=== PATIENT | male | born 1980 | race Two or more races ===

== ENCOUNTER 2019-03-09 23:30 | Emergency (ER) | payer MEDICAID ==
[~2019-03-09] VITALS: Ht 170.2 cm; Wt 77.1 kg
[2019-03-09 23:58] VITALS: BP 115/78
[2019-03-10] MEDS ORDERED: BACTRIM DS TAB1 EAC1 ORAL (00:06)
--- NOTE | 2019-03-10 00:07 | Emergency Room Report ---
History of Present Illness General Chief Complaint: Wound Recheck/Suture Removal Source: Patient Present Illness HPI Is a 38-year-old male who presents with chief complaint of wound check. He has an abscess to his right shoulder area for about 5 days now. He was seen initially [facility] and placed on antibiotics. 2 days later he went to [place] and had I&D done. He came here now 3 days later for recheck. Continued to have drainage. No fever chills. Tender to that area. Said that he finished his antibiotics already. Denies any other complaint. Pain is 7 out of 10. Worse with palpation. Allergies: Uncoded Allergies: PEANUTS (Allergy, Unknown, 03/09/19) Patient History Past Medical History: see triage record, old chart reviewed Past Surgical History: none Pertinent Family History: none Social History: Reports: smoking Immunizations: other Reviewed Nursing Documentation: PMH: Agreed; PSxH: Agreed Nursing Documentation-PM Past Medical History: No Stated History Review of Systems Eye: Denies: eye pain, blurred vision ENT: Denies: ear pain, nose congestion, throat swelling Respiratory: Denies: cough, shortness of breath Cardiovascular: Denies: chest pain, palpitations Gastrointestinal: Denies: abdominal pain, diarrhea, nausea, vomiting Musculoskeletal: Denies: back pain, joint pain Skin: Denies: rash Neurological: Denies: headache, numbness Endocrine: Denies: increased thirst, increased urine Hematologic/Lymphatic: Denies: easy bruising All Other Systems: negative except mentioned in HPI Physical Exam Vital Signs Date Time Temp Pulse Resp B/P (MAP) Pulse Ox O2 Delivery O2 Flow Rate FiO2 03/09/19 23:45 97.9 87 18 115/78 (90) 99 Room Air Vitals normal Sp02 EP Interpretation: reviewed, normal General Appearance: well appearing, no apparent distress, alert Head: normocephalic, atraumatic Eyes: bilateral eye PERRL, bilateral eye EOMI ENT: hearing grossly normal, normal pharynx Neck: full range of motion, supple, no meningismus Respiratory: chest non-tender, lungs clear, normal breath sounds Cardiovascular #1: regular rate, rhythm, no murmur Gastrointestinal: normal bowel sounds, non tender, no mass, no organomegaly, no bruit, non-distended Musculoskeletal: back normal, gait/station normal, normal range of motion Psychiatric: mood/affect normal Skin: warm/dry, other - Right scapula area: The wound has induration with surrounding erythema. Granulation tissue. No drainage. Medical Decision Making Diagnostic Impression: Primary Impression: Encounter for wound re-check ER Course This patient presents here for wound check. This is a status post I&D of an abscess. I will continue with antibiotics since there is still some surrounding erythema and induration. I removed the packing in place a wet-to- dry dressing. No need for further I&D. Last Vital Signs Date Time Temp Pulse Resp B/P (MAP) Pulse Ox O2 Delivery O2 Flow Rate FiO2 03/09/19 23:58 97.9 18 115/78 99 Room Air 03/09/19 23:45 87 Status: improved Disposition: HOME, SELF-CARE Condition: Stable Scripts Trimethoprim/Sulfamethoxazole 160/800* (BACTRIM DS TABLET*) 1 Each Tablet 1 TAB ORAL Q12H, #14 TAB 0 Refills Prov: Slim Bang MD 03/10/19 Referrals: [facility],REFERRING (PCP) Patient Instructions: Wound Check Additional Instructions: Keep wound clean. Clean area with hydrogen peroxide and then apply antibiotic ointment. Keep it covered. Follow-up with your doctor in 3 to 5 days for recheck. Return if worse. Slim Bang MD Mar 10, 2019 00:07
[2019-03-10 00:23] VITALS: BP 115/78
== END 2019-03-10 00:24 | disposition home or self-care (01) ==
LOC: EMR 23:32
DX: L02.413 Cutaneous abscess of right upper limb (principal); F17.200 Nicotine dependence, unspecified, uncomplicated; Z91.010 Allergy to peanuts; Z48.01 Encounter for change or removal of surgical wound dressing
CPT/HCPCS: 99281

== ENCOUNTER 2019-06-12 16:51 | Emergency (ER) | payer BC, MEDICAID ==
[~2019-06-12] VITALS: Ht 172.7 cm; Wt 77.1 kg
[~2019-06-12 16:51] MED LIST: BACTRIM DS TAB1 EAC1 ORAL
[2019-06-12 17:20] VITALS: BP 119/70
--- NOTE | 2019-06-12 17:20 | NUR ---
ED Nurse Note: ambulated into ED due to left hand skin abscess x 2days, swelling noted. NAD noted.
--- NOTE | 2019-06-12 17:31 | Emergency Room Report ---
History of Present Illness General Chief Complaint: Skin Rash/Abscess Source: Patient Present Illness HPI 38-year-old male with history of methamphetamine abuse here complaining of an abscess versus cyst in the left dorsum of the hand x3 days. Patient reports that due to methamphetamine use he keeps picking on his skin and getting multiple infections. There is a rounded cystic lesion in the left hand on the dorsum at the base of the metacarpal bones slightly warm to touch minimal pus filled. Denies fever and chills, rating pain 10 out of 10 without radiation. Denies tingling numbness. He has full range of motion in his hand. Is up-to- date with his tetanus shot. Denies other injuries, chest pain, shortness of breath, palpitation, and all other associated symptoms. I advised the patient that it does not need to be drained as it is not a very sensitive spot and patient only to take antibiotics. Allergies: Uncoded Allergies: PEANUTS (Allergy, Unknown, 03/09/19) Patient History Past Medical History: see triage record Past Surgical History: unable to obtain Pertinent Family History: none Social History: Reports: drug use - meth Immunizations: UTD Reviewed Nursing Documentation: PMH: Agreed; PSxH: Agreed Nursing Documentation-PMH Past Medical History: No Stated History Review of Systems All Other Systems: negative except mentioned in HPI Physical Exam Vital Signs Date Time Temp Pulse Resp B/P (MAP) Pulse Ox O2 Delivery O2 Flow Rate FiO2 06/12/19 17:10 98.1 89 18 119/70 (86) 96 Room Air Sp02 EP Interpretation: reviewed, normal General Appearance: no apparent distress, alert, GCS 15, non-toxic Head: normocephalic, atraumatic Eyes: bilateral eye normal inspection, bilateral eye PERRL ENT: hearing grossly normal, normal pharynx, no angioedema, normal voice Neck: full range of motion, supple/symm/no masses Respiratory: chest non-tender, lungs clear, normal breath sounds, speaking full sentences Cardiovascular #1: regular rate, rhythm, no edema, no murmur Cardiovascular #2: 2+ radial (R), 2+ radial (L) Gastrointestinal: normal bowel sounds, non tender, soft, non-distended, no guarding, no rebound Genitourinary: normal inspection, no CVA tenderness Musculoskeletal: back normal, gait/station normal, normal range of motion, non- tender, no calf tenderness Neurologic: alert, oriented x3, responsive, motor strength/tone normal, sensory intact, speech normal Psychiatric: judgement/insight normal, memory normal, mood/affect normal, no suicidal/homicidal ideation Skin: other - Cellulitis of left hand due to cyst Lymphatic: no adenopathy Medical Decision Making PA Attestation Diagnosis and treatment plans were reviewed and discussed with my supervising physician Dr. Blevins Diagnostic Impression: Primary Impression: Cellulitis of hand ER Course 38-year-old male with history of methamphetamine abuse here complaining of an abscess versus cyst in the left dorsum of the hand x3 days. Patient reports that due to methamphetamine use he keeps picking on his skin and getting multiple infections. There is a rounded cystic lesion in the left hand on the dorsum at the base of the metacarpal bones slightly warm to touch minimal pus filled. Denies fever and chills, rating pain 10 out of 10 without radiation. Denies tingling numbness. He has full range of motion in his hand. Is up-to- date with his tetanus shot. Denies other injuries, chest pain, shortness of breath, palpitation, and all other associated symptoms. I advised the patient that it does not need to be drained as it is not a very sensitive spot and patient only to take antibiotics. Ddx considered but are not limited to : Cellulitis, cyst, superficial infection , abscess Vital signs: are WNL, pt. is afebrile H&PE are most consistent with: Cellulitis of left hand secondary to cyst ORDERS: Keflex, ibuprofen ED INTERVENTIONS: Keflex, wound clean and dressed DISCHARGE: At this time pt. is stable for d/c to home. Will provide printed patient care instructions, and any necessary prescriptions. Care plan and follow up instructions have been discussed with the patient prior to discharge. I advised patient to stop doing methamphetamine as this is the reason why he keeps picking his skin and causing multiple infections this is happened in the past. I also advised patient to follow-up with a primary care provider and let the cyst pop on his own as it is not a very sensitive location and should not be drained unless turn into a deep abscess. Last Vital Signs Date Time Temp Pulse Resp B/P (MAP) Pulse Ox O2 Delivery O2 Flow Rate FiO2 06/12/19 17:10 98.1 89 18 119/70 (86) 96 Room Air Disposition: HOME, SELF-CARE Condition: Stable Scripts Ibuprofen (Ibu) 800 Mg Tablet 800 MG PO BID, #20 TAB Prov: Bina Gomes 06/12/19 Cephalexin* (KEFLEX*) 500 Mg Capsule 500 MG ORAL EVERY 6 HOURS for 7 Days, #28 CAP Prov: Bina Gomes 06/12/19 Referrals: [facility]/,REFERRING (PCP) Patient Instructions: Cellulitis Bina Gomes Jun 12, 2019 17:31
[2019-06-12] MEDS ORDERED: IBU800 MG PO (17:32)
[2019-06-12] MEDS ORDERED: CEPHALEXIN500 MG ORAL (17:32)
[2019-06-12 17:43] VITALS: BP 127/73
--- NOTE | 2019-06-12 17:44 | NUR ---
ER DISCHARGE NOTE: Patient is cleared to be discharged per ERMD, pt is aox4, on room air, with stable vital signs. pt was given dc and prescription instructions, pt was able to verbalize understanding, pt id band removed without complications. pt is able to ambulate with steady gait. pt took all belongings.
[2019-06-12] MEDS ORDERED: Cephalexin 500mg cap ORAL ONE (17:45)
== END 2019-06-12 17:44 | disposition home or self-care (01) ==
LOC: EMR 17:21
DX: L03.114 Cellulitis of left upper limb (principal); F15.90 Other stimulant use, unspecified, uncomplicated; Z91.010 Allergy to peanuts
CPT/HCPCS: 99283

== ENCOUNTER 2019-11-30 03:18 | Emergency (ER) | payer BC, MEDICAID ==
[~2019-11-30] VITALS: Ht 167.6 cm; Wt 63.5 kg
[~2019-11-30 03:18] MED LIST changes: +CEPHALEXIN500 MG ORAL; +IBU800 MG PO
[2019-11-30 03:30] VITALS: BP 142/70
--- NOTE | 2019-11-30 03:30 | NUR ---
ED Nurse Note: Pt walked into ED for c/o of canker sores in mouth and sores on penis. Pt is aaox4, no acute distress noted.
--- NOTE | 2019-11-30 03:36 | Emergency Room Report ---
History of Present Illness General Chief Complaint: Male Urogenital Problems Source: Patient Present Illness HPI This a 39-year-old male with no past medical history. He said he has bumps on his lips and tongue. Initially checked in with the symptoms on his penis but then he did not tell me this. He told me he was in his mouth. He said he has oral sex with a woman and felt that he has some infection going on. No discharge. No fever chills but denies any other complaint. No discharge. Allergies: Uncoded Allergies: PEANUTS (Allergy, Unknown, 03/09/19) Patient History Past Medical History: see triage record, old chart reviewed Past Surgical History: none Pertinent Family History: none Social History: Reports: smoking, drug use Immunizations: other Reviewed Nursing Documentation: PMH: Agreed; PSxH: Agreed Nursing Documentation-PMH Past Medical History: No Stated History Review of Systems Eye: Denies: eye pain, blurred vision ENT: Denies: ear pain, nose congestion, throat swelling Respiratory: Denies: cough, shortness of breath Cardiovascular: Denies: chest pain, palpitations Gastrointestinal: Denies: abdominal pain, diarrhea, nausea, vomiting Musculoskeletal: Denies: back pain, joint pain Skin: Denies: rash Neurological: Denies: headache, numbness Endocrine: Denies: increased thirst, increased urine Hematologic/Lymphatic: Denies: easy bruising All Other Systems: negative except mentioned in HPI Physical Exam Sp02 EP Interpretation: reviewed, normal General Appearance: well appearing, no apparent distress, alert Head: normocephalic, atraumatic Eyes: bilateral eye PERRL, bilateral eye EOMI ENT: hearing grossly normal, normal pharynx, other - Ulceration to the gumline and tongue area. Neck: full range of motion, supple, no meningismus Respiratory: chest non-tender, lungs clear, normal breath sounds Cardiovascular #1: regular rate, rhythm, no murmur Gastrointestinal: normal bowel sounds, non tender, no mass, no organomegaly, no bruit, non-distended Musculoskeletal: back normal, normal range of motion, gait/station normal Psychiatric: mood/affect normal Medical Decision Making Diagnostic Impression: Primary Impression: Aphthous ulcer of mouth ER Course Presents with ulceration to the mouth. He is worried about STDs. We will give him a dose of antibiotics here. Will discharge home. Status: unchanged Disposition: HOME, SELF-CARE Condition: Stable Additional Instructions: Follow up with your doctor in 7 days. Have your partner treated also. Return if symptoms worsen. Slim Bang MD Nov 30, 2019 03:36
[2019-11-30] MEDS ORDERED: Azithromycin 250mg tab ORAL ONE (03:45)
[2019-11-30] MEDS ORDERED: Lidocaine 1% MPF 10mg/ml 5ml INJ ONE (03:45)
--- NOTE | 2019-11-30 03:45 | NUR ---
ED Nurse Note: Pt refused medication and stated "I don't need this bs, I will go to [facility]".
[2019-11-30 03:50] VITALS: BP 142/70
--- NOTE | 2019-11-30 03:50 | NUR ---
ER DISCHARGE NOTE: Patient is cleared to be discharged per ERMD, pt is aox4, on room air, with stable vital signs. pt was given dc instructions, pt was able to verbalize understanding, pt id band removed. pt is able to ambulate with steady gait. pt took all belongings.
== END 2019-11-30 03:50 | disposition home or self-care (01) ==
LOC: EMR 03:43
DX: K12.0 Recurrent oral aphthae (principal); F17.200 Nicotine dependence, unspecified, uncomplicated; Z91.010 Allergy to peanuts
CPT/HCPCS: 99281